=== PATIENT | male | born 1965 | race Caucasian/White ===

== ENCOUNTER 2019-01-18 05:10 | Inpatient (IN) | payer BC ==
[2019-01-12 11:13] VITALS: BMI 29.4
[~2019-01-18] VITALS: Ht 185.4 cm; Wt 100.4 kg
[2019-01-18] VITALS (25 sets, daily range): BP systolic 94–135; BP diastolic 58–70; PULSE 57–82; RESP 13–22; Ht 185.4 cm; Wt 100.4 kg
--- NOTE | 2019-01-18 05:21 | HPN ---
Date/Time of Note Date/Time of Note DATE: 01/18/19 TIME: 05:21 Interval H&P Admission Note Pt. seen H&P reviewed: No system changes DAVIN MARIE MD Jan 18, 2019 05:21
--- NOTE | 2019-01-18 05:23 | OPR ---
Date/Time of Note Date/Time of Note DATE: 01/18/19 TIME: 05:21 Operative Report Procedure Date: Jan 18, 2019 Preoperative Diagnosis Right hip primary arthritis Postoperative Diagnosis Right hip primary arthritis Operation/Procedure Performed 1. Right total hip arthroplasty 2. Injection of PRP solution Surgeon see signature line Service Center Technician Nathen Easton MD Anesthesia Type: general Estimated Blood Loss: 150 - 200 ml's Transfusion none Specimen None Grafts/Implants See op note Complications none Pt Condition Post Procedure: stable Disposition: PACU Procedure Description HISTORICAL MANUSCRIPTS CURATOR SURGEON: Nathen Easton MD was asked to be present at my request as a result of the complexity associated with this procedure including positioning of the extremity, positioning of the instrumentation and protection of the neurovascular structures. In my opinion, the assistance offered by a registered nurse surgical services is insufficient and Dr. Easton should be compensated for his time. PROCEDURE IN DETAIL: Following the administration of general endotracheal anesthesia supplemented with a spinal anesthetic, the patient was placed in the supine position. The antecubital fossa on the right was prepped and 60 cc of blood were aspirated. Under sterile conditions, the blood was passed off to the escrow representative from the company who prepared the PRP solution. The right lower extremity was then prepped and draped in the usual sterile fashion. A red leader radiograph was obtained for preliminary limb length and femoral size as well as acetabular size. There were severe arthritic changes noted. Over the right hip, a lateral incision was then made exposing the tensor fascia the fascia was incised the tensor was retracted laterally and the vessels were cauterized. The anterior capsule was then identified and prepared. A capsulectomy was then performed and the femoral head was then evaluated. Severe arthritic changes were noted. A femoral head cut was then made in the appropriate degree of version and inclination. Following dislocation, severe arthritic changes were noted with very certain severe cystic changes in the femoral head. The acetabulum was then exposed and a capsulectomy and labrectomy were completed. The central portion was then entered and serially reamed up to the 55 mm size. A Depuy Derby cup which was 55 mm, with a standard liner was then fit into position with solid fixation. A 30 mm screw was used for additional fixation. Attention was then directed to the femur, the femur was exposed and prepared. The canal was entered and serially reamed up to the size 6 high offset. The femoral canal was then thoroughly irrigated and the PRP solution was then i nstilled into the femoral canal. A size 6 high offset Depuy Actis stem was then inserted with solid fixation. A 36 mm, +1.5 mm femoral head, which was ceramic was then inserted. The leg was taken through full range of motion with no evident instability. In addition, radiographs revealed excellent position with reproduction of the limb lengths within a millimeter. The wound was irrigated thoroughly. The wound was then closed in layers and a Prenio for the final cover. This was watertight. Estimated blood loss was procedure was 200 cc. Postoperative radiographs will be obtained in the recovery room. DAVIN MARIE MD Jan 18, 2019 05:23
[2019-01-18] MEDS ORDERED: SOD CHLORIDE 0.9% 100 ML, TRANEXAMIC ACID 3,000 MG IRR ONE ×2 (05:30)
[2019-01-18] MEDS ORDERED: BUPIVACAINE 0.5% (SDV) 30 ML, morphine SULFATE (PF) 8 MG, EPINEPHrine 0.3 MG, KETOROLAC... IRR SCH ×7 (05:30)
[2019-01-18] MEDS ORDERED: CEFAZOLIN 2 GM/50 ML (PMX) 50 ML IVPB ONE (05:30)
[2019-01-18] MEDS ORDERED: GABAPENTIN 300 MG CAP PO ONE (05:30)
[2019-01-18] MEDS ORDERED: TRANEXAMIC ACID 1GM/100ML(PMX) 100 ML IVPB ONE (05:30)
[2019-01-18] MEDS ORDERED: DEXAMETHASONE 1 MG TAB PO ONE (05:30)
[2019-01-18] MEDS ORDERED: LACTATED RINGER'S 1,000 ML IV SCH (06:30)
--- NOTE | 2019-01-18 06:39 | PREAC ---
Date/Time of Note Date/Time of Note DATE: 01/18/19 TIME: 06:37 Anesthesia Eval and Record Evaluation Time Pre-Procedure Interview DATE: 01/18/19 TIME: 06:37 Age 54 Sex male NPO: 8 hrs Preoperative diagnosis right hip osteoarthritis Planned procedure right total hip replacement Past Medical History Past Medical History: Includes Cardio: HTN GI: Obesity Surgery & Anesthesia Issues No known issue Meds Anticoagulation: No Beta Yanna within 24 hr: No Reason Beta Yanna not given: Pt. not on B-Yanna No Active Prescriptions or Reported Meds Current Medications Bupivacaine HCl/ Morphine Sulfate/ Epinephrine/ Ketorolac Tromethamine/ Clonidine/Sodium Chloride/ Vancomycin HCl INTRA-OP IRR ; Start 01/18/19 at 05:30; Stop 01/18/19 at 07:00 Lactated Ringer's 1,000 ml @ 0 mls/hr Q0M IV Last administered on 01/18/19at 06:05; Admin Dose 25 MLS/HR; Start 01/18/19 at 06:30; Stop 01/18/19 at 18:00 Meds reviewed: Yes Allergies Coded Allergies: iodine (Verified Allergy, Unknown, hives, 01/12/19) Allergies Reviewed: Yes Labs/Studies Labs Reviewed: Reviewed by anesthesiologist test: N/A Studies: ECG, CXR Pre-procedure Exam Last vitals Vital Signs Date Temp Pulse Resp B/P (MAP) Pulse Ox O2 O2 Flow FiO2 Time Delivery Rate 01/18/19 97.2 73 20 135/69 Room Air 06:15 (91) Airway: Adequate mouth opening, Adequate thyromental dist Mallampati: Mallampati II Teeth: Normal Lung: Normal Heart: Normal ASA Physical Status ASA physical status: 2 Emergency: None Planned Anesthetic General/MAC: ETT Neuraxial: Spinal Planned Pain Management Parenteral pain med Pre-operative Attestations Prior to commencing anesthesia and surgery, the patient was re-evaluated, there was verification of: *The patient's identity *The results of appropriate recent lab work and preoperative vital signs *The above evaluation not changing prior to induction *Anesthetic plan, risk benefits, alternative and complications discussed with patient/family; questions answered; patient/family understands, accepts and wishes to proceed. ANAI GRAJEDA Jan 18, 2019 06:39
[2019-01-18] MEDS ORDERED: SEVOFLURANE 15 MIN ONE (06:45)
[2019-01-18] MEDS ORDERED: ROCURONIUM 50 MG INJ ONE (06:45)
[2019-01-18] MEDS ORDERED: MIDAZOLAM 1 MG/ML 2 ML INJ ONE (06:45)
[2019-01-18] MEDS ORDERED: FENTAnyl 50 MCG/ML VIAL ONE (06:45)
[2019-01-18] MEDS ORDERED: CA CHLORIDE (GM) 10% 10 ML INJ ONE (06:55)
[2019-01-18] MEDS ORDERED: POLYMYXIN/BACITRACIN 1L IRRIG ONE (06:55)
[2019-01-18] MEDS ORDERED: THROMBIN 20,000 UNIT VIAL ONE (06:55)
[2019-01-18] MEDS ORDERED: LIDOCAINE 2% (SDV) 5 ML INJ ONE (06:58)
[2019-01-18] MEDS ORDERED: CEFAZOLIN 1 GM INJ ONE (06:58)
[2019-01-18] MEDS ORDERED: PROPOFOL 20 ML ONE (06:58)
[2019-01-18] MEDS ORDERED: DEXAMETHASONE 4 MG/ML 5 ML INJ ONE (06:58)
[2019-01-18] MEDS ORDERED: ONDANSETRON 4 MG INJ ONE (06:59)
[2019-01-18] MEDS ORDERED: TRANEXAMIC ACID 1GM/100ML(PMX) 100 ML ONE (07:29)
[2019-01-18] MEDS ORDERED: DIPHENHYDRAMINE 50 MG INJ IV PRN ×2 (09:00→09:30)
[2019-01-18] MEDS ORDERED: HYDROmorphONE 1 MG/ML SYG IV PRN (09:00)
[2019-01-18] MEDS ORDERED: ONDANSETRON 4 MG INJ IV PRN ×2 (09:00→09:30)
[2019-01-18] MEDS ORDERED: oxyCODONE 5 MG TAB PO PRN ×2 (09:00)
[2019-01-18] MEDS ORDERED: NACL 0.9% 3 ML SYG IV SCH (09:00)
[2019-01-18] MEDS ORDERED: ZOLPIDEM 5 MG TAB PO PRN (09:00)
[2019-01-18] MEDS ORDERED: MAGNESIUM HYDROXIDE 30ML CUP PO PRN (09:00)
--- NOTE | 2019-01-18 09:00 | PDOCDIS ---
Discharge Instructions DIAGNOSIS Discharge Diagnosis Hip arthritis CONDITION [id number] Patient Condition: [id number] Good HOME CARE INSTRUCTIONS: [id number] Diet Instructions: [id number] Regular ACTIVITY: [id number] Activity Restrictions: [id number] Slowly Increase Activity [id number] Bathing Restrictions: [id number] Shower FOLLOW UP/APPOINTMENTS Follow-up Plan 2 weeks SCHOOL/WORK RELEASE May return to School/Work with: With Restrictions School/Work Release Comment: No hip extension for 6 weeks DAVIN MARIE MD Jan 18, 2019 09:00
[2019-01-18] MEDS ORDERED: NEOSTIGMINE 3 MG/3 ML SYRINGE ONE (09:02)
[2019-01-18] MEDS ORDERED: GLYCOPYRROLATE 0.4 MG INJ ONE (09:02)
--- NOTE | 2019-01-18 09:20 | PAC ---
Date/Time of Note Date/Time of Note DATE: 01/18/19 TIME: 09:19 Post-Anesthesia Notes Post-Anesthesia Note Last documented vital signs Vital Signs Date Temp Pulse Resp B/P (MAP) Pulse Ox O2 O2 Flow FiO2 Time Delivery Rate 01/18/19 97.2 73 20 135/69 Room Air 0918 (91) Activity: WNL Respiratory function: WNL Cardiovascular function: WNL Mental status: Baseline Pain reasonably controlled: Yes Hydration appropriate: Yes Nausea/Vomiting absent: Yes ANIA GRAJEDA Jan 18, 2019 09:20
[2019-01-18] MEDS ORDERED: KETOROLAC 30 MG INJ IV PRN (09:30)
[2019-01-18] MEDS ORDERED: HYDROmorphONE 1 MG/5 ML IV SYRINGE IV PRN ×3 (09:30)
[2019-01-18] MEDS ORDERED: ALBUTEROL 0.083% (NEB) 2.5 MG/3 ML AMP HHN PRN (09:30)
[2019-01-18] MEDS ORDERED: LABETALOL HCL 20MG INJ IV PRN (09:30)
[2019-01-18] MEDS ORDERED: FENTAnyl 50 MCG/ML VIAL IV PRN ×3 (09:30)
[2019-01-18] MEDS ORDERED: EPHEDrine 25 MG/5 ML SYG IV PRN (09:30)
[2019-01-18] MEDS ORDERED: OXYCODONE/ACETAMINOPHEN (5/325) TAB PO PRN ×2 (09:30)
[2019-01-18] MEDS ORDERED: hydrALAzine 20 MG INJ IV PRN (09:30)
[2019-01-18] MEDS ORDERED: MEPERIDINE 25 MG INJ IV PRN (09:30)
[2019-01-18] MEDS: LACTATED RINGER'S 1,000 ML IV SCH ×3 (09:34→21:16)
[2019-01-18] MEDS: ACETAMINOPHEN 1000MG/100ML IV 100 ML IVPB SCH ×3 (09:48→23:26)
[2019-01-18] MEDS: CEFAZOLIN 1 GM/50 ML (PMX) 50 ML IVPB SCH ×2 (09:49→17:11)
[2019-01-18] MEDS: SENNA/DOCUSATE NA (8.6MG/50MG) TAB PO SCH ×2 (10:03→19:52)
[2019-01-18] MEDS: DEXAMETHASONE 2 MG TAB PO SCH ×3 (11:08→23:26)
[2019-01-18] MEDS: GABAPENTIN 300 MG CAP PO SCH (20:27)
[2019-01-19 00:07] VITALS: BP 112/64; PULSE 69; RESP 20
[2019-01-19] MEDS: CEFAZOLIN 1 GM/50 ML (PMX) 50 ML IVPB SCH (00:14)
[2019-01-19] MEDS ORDERED: ONDANSETRON 4 MG INJ IV PRN (01:30)
--- NOTE | 2019-01-19 05:34 | PN ---
Date/Time of Note Date/Time of Note DATE: 01/19/19 TIME: 05:33 Subjective Awake and alert with no complaints. Objective Vitals Vital Signs Date Temp Pulse Resp B/P (MAP) Pulse Ox O2 O2 Flow FiO2 Time Delivery Rate 01/19/19 98.0 69 20 112/64 96 00:07 (80) 01/18/19 Room Air 19:25 01/18/19 2.0 11:00 Intake and Output 01/18/19 01/18/19 01/19/19 1515:00 23:00 07:00 IntakeIntake Total 2590 ml 1100 ml 150 ml OutputOutput Total 450 ml BalanceBalance 2140 ml 1100 ml 150 ml Wound is clean and dry. Neurologically intact. No signs of DVT. Results Result Diagram: 01/18/19 1006 Medications Medications Current Medications Lactated Ringer's 1,000 ml @ 100 mls/hr Q10H IV Last administered on 01/18/19at 21:16; Admin Dose 100 MLS/HR; Start 01/18/19 at 08:55 Senna/Docusate Sodium (Senokot-S) 1 tab BID PO Last administered on 01/18/19at 10:03; Admin Dose 1 TAB; Start 01/18/19 at 09:00 Simethicone (Mylicon) 80 mg TID PRN PO .GAS; Start 01/18/19 at 09:00 Magnesium Hydroxide (Milk Of Mag) 30 ml BID PRN PO .CONSTIPATION; Start 9 at 09:00 Magnesium Hydroxide (Milk Of Mag) 30 ml HS PO ; Start 01/20/19 at 21:00 Dexamethasone (Decadron) 2 mg Q6 PO Last administered on 01/18/19at 23:26; Admin Dose 2 MG; Start 01/18/19 at 12:00; Stop 01/19/19 at 06:01 Gabapentin (Neurontin) 300 mg HS PO Last administered on 01/18/19at 20:27; Admin Dose 300 MG; Start 01/18/19 at 21:00 Oxycodone HCl (Roxicodone) 15 mg Q4H PRN PO .PAIN; Start 01/18/19 at 09:00 Oxycodone HCl (Roxicodone) 10 mg Q4H PRN PO .PAIN; Start 01/18/19 at 09:00 Oxycodone HCl (Roxicodone) 5 mg Q4H PRN PO .PAIN; Start 01/18/19 at 09:00 Hydromorphone HCl (Dilaudid) 1 mg Q4H PRN IV .BREAKTHROUGH PAIN Last administered on 01/18/19at 11:08; Admin Dose 1 MG; Start 01/18/19 at 09:00 Ondansetron HCl (Zofran Inj) 4 mg Q6H PRN IV NAUSEA/VOMITING; Start 01/18/19 at 09:00 Diphenhydramine HCl (Benadryl) 25 mg Q6H PRN IV .PRURITUS; Start 01/18/19 at 09:00 Zolpidem Tartrate (Ambien) 10 mg HS PRN PO .INSOMNIA; Start 01/18/19 at 09:00 IV Flush (NS 3 ml) 3 ml per protocol IV ; Start 01/18/19 at 09:00 Aspirin (Ecotrin) 325 mg DAILY PO ; Start 01/19/19 at 09:00 VTE Prophylaxis Risk score (from Nsg)>0 risk: 3 SCD applied (from Nsg): Yes Lines/Catheters IV Catheter Type: Saline Lock Ness in Place: No Assessment/Plan Assessment/Plan Assessment: Status post total hip replacement Plan: Begin PT this morning discharge when independent. DAVIN MARIE MD Jan 19, 2019 05:34
--- NOTE | 2019-01-19 05:34 | DS ---
Date/Time of Note Date/Time of Note DATE: 01/19/19 TIME: 05:34 Discharge Summary Admission/Discharge Info Admit Date/Time Jan 18, 2019 at 05:10 Discharge Date/Time 01/19/2019 Discharge Diagnosis Hip arthritis Patient Condition: Good Hospital Course Patient was admitted and underwent uncomplicated procedure. Postop day 1 discharge after PT. Home Meds No Active Prescriptions or Reported Meds Follow-up Plan 2 weeks Primary Care Provider Not On Staff Doctor Pending Labs Laboratory Tests Test 01/18/19 10:06 White Blood Count 8.5 10^3/ul (4.8-10.8) Red Blood Count 4.27 10^6/ul (4.70-6.10) Hemoglobin 12.8 g/dl (14.0-18.0) Hematocrit 38.2 % (42.0-52.0) Mean Corpuscular Volume 89.5 fl (82.0-101.0) Mean Corpuscular Hemoglobin 30.0 pg (29.0-33.0) Mean Corpuscular Hemoglobin Concent 33.5 g/dl (32.0-37.0) Red Cell Distribution Width 12.2 % (11.5-14.5) Platelet Count 179 10^3/UL (140-415) Mean Platelet Volume 9.1 fl (7.4-10.4) Immature Granulocytes % 0.900 % (0.001-0.429) Neutrophils % 86.1 % (39.0-77.0) Lymphocytes % 9.2 % (15.0-51.0) Monocytes % 2.8 % (0.0-11.0) Eosinophils % 0.4 % (0.0-7.0) Basophils % 0.6 % (0.0-2.0) Nucleated Red Blood Cells % 0.0 /100WBC (0.0-0.0) Immature Granulocytes # 0.080 10^3/ul (0.0-0.031) Neutrophils # 7.3 10^3/ul (1.6-7.5) Lymphocytes # 0.8 10^3/ul (0.8-2.9) Monocytes # 0.2 10^3/ul (0.3-0.9) Eosinophils # 0.0 10^3/ul (0.0-0.5) Basophils # 0.1 10^3/ul (0.0-0.1) Nucleated Red Blood Cells # 0.0 10^3/ul (0.0-0.0) DAVIN MARIE MD Jan 19, 2019 05:34
[2019-01-19] MEDS: DEXAMETHASONE 2 MG TAB PO SCH (06:47)
[2019-01-19] MEDS: LACTATED RINGER'S 1,000 ML IV SCH ×2 (06:47→14:55)
[2019-01-19 07:22] VITALS: BP 117/67; PULSE 60; RESP 20
[2019-01-19] MEDS: SENNA/DOCUSATE NA (8.6MG/50MG) TAB PO SCH ×2 (08:31→20:38)
[2019-01-19 09:00] VITALS: BP 93/46
[2019-01-19] MEDS ORDERED: ASPIRIN (EC) 325 MG TAB PO SCH (09:00)
[2019-01-19 09:30] VITALS: BP 100/53
[2019-01-19] MEDS: oxyCODONE 5 MG TAB PO PRN ×2 (12:31→20:39)
[2019-01-19 12:58] VITALS: BP 130/61; PULSE 61; RESP 20
[2019-01-19 19:10] VITALS: BP 135/76; PULSE 95; RESP 20
[2019-01-19] MEDS: GABAPENTIN 300 MG CAP PO SCH (20:39)
[2019-01-20] MEDS ORDERED: MAGNESIUM HYDROXIDE 30ML CUP PO SCH (21:00)
== END 2019-01-19 21:15 | disposition home or self-care (01) | DRG 470 ==
LOC: REC 05:10 → EDBD 07:00 → EDSTATUS 07:00 → MS1 10:42
PROVIDERS: ADMIT Orthopaedic Surgery; ATTEND Orthopaedic Surgery
PROC: 0SR904A Replacement of Right Hip Joint with Ceramic on Polyethylene Synthetic Substitute, Uncemented, Open Approach (ICD-10-PCS; principal; 2019-01-18 07:00)
DX: M16.11 Unilateral primary osteoarthritis, right hip (principal); I10 Essential (primary) hypertension; E66.9 Obesity, unspecified; Z68.29 Body mass index [BMI] 29.0-29.9, adult
CPT/HCPCS: 72170; 73530; 85025; 86999; 87086; 88304; 88311; 97116; 97161; 97530; C1713; C1776; J0131; J0171; J0690; J0735; J1100; J1170; J1885; J2250; J2274; J2405; J2710; J3010; J3370; J7120